=== PATIENT | female | born 1935 | race Caucasian/White ===

== ENCOUNTER 2018-04-18 10:55 | Day surgery (SDC) | payer OTHER ==
[2018-04-18] MEDS ORDERED: LIDOCAINE 2% MPF 5 ML VIAL ONE (11:20)
[2018-04-18] MEDS ORDERED: TETRACAINE HCL 0.5% 2ML OPTH ONE (11:21)
[2018-04-18] MEDS ORDERED: NA CHLORIDE 0.9% 500 ML ONE (11:21)
[2018-04-18] MEDS ORDERED: BUPIVACAINE 0.25% PF 10 ML VIAL ONE (11:21)
[2018-04-18] MEDS: CYCLOPENTOLATE 1% OPTH 2 ML ONE ×3 (11:26→11:45)
[2018-04-18] MEDS: PHENYLEPHRINE 10% OPTH 5ML ONE ×3 (11:26→11:45)
[2018-04-18] MEDS ORDERED: NS 0.9% VIAL 10 ML ONE (11:44)
[2018-04-18] MEDS ORDERED: LIDOCAINE 1% MPF 5 ML VIAL ONE (12:23)
[2018-04-18] MEDS ORDERED: PROPOFOL 200 MG/20 ML VIAL IV ONE (12:23)
[2018-04-18] MEDS: BALANCED SALT IRRIG PLAIN 500 ML BTL IRR ONE ×2 (12:26→12:41)
[2018-04-18] MEDS: EPINEPHRINE/PF 1 MG/ML AMP ONE ×2 (12:27→12:41)
[2018-04-18] MEDS: DUOVISC 1 KIT OPTH ONE ×2 (12:28→12:42)
[2018-04-18] MEDS: MOXIFLOXACIN HCL 10 DROPS/ML **OR USE OPTH ONE ×2 (12:28→12:42)
[2018-04-18] MEDS ORDERED: EPINEPHRINE/PF 1 MG/ML AMP ONE (13:03)
--- NOTE | 2018-04-18 13:08 | P.BOP ---
Preoperative diagnosis: Nuclear sclerotic cataract OS Postoperative diagnosis: Same Primary procedure: Phacoemulsification with IOL OS Estimated blood loss: None Anesthesia: Local (Subtenon's infusion with anesthesia for cataract surgery) Complications: None Implants: SN60WF +22.5 Transferred to: Other (Day surgery) Condition: Good
[2018-04-18 13:54] VITALS: BP 161/93; TEMP 97.3; O2SAT 98
--- NOTE | 2018-04-19 00:09 | OP ---
Date of Procedure: 04/18/2018 Surgeon: Mariana Thompson MD Anesthesiologist: Mir Velazquez CRNA and Dwain Garcia MD. Preoperative Diagnosis: Nuclear sclerotic cataract, left eye. Operation Performed: Phacoemulsification with intraocular lens implant, left eye. Anesthesia: Per cataract surgery. Complications: Description Of Procedure: In day surgery, the patient was prepped with Betadine and draped. A conju nctival incision was made in the inferior nasal quadrant with Na scissors. A sub-Tenon block c onsisting of a 1:1 mixture of 2% Xylocaine and 0.25% bupivacaine was placed through the conjunctival incision with a blunt cannula. A [place] balloon was placed over the eye and the patient was transferr ed to the operating room. In the operating room the patient was prepped and draped in the usual sterile fashion for ophthalmic surgery. A lid speculum was placed in the left eye. Two paracentesis sites were made superiorly and inferiorly in the limbal cornea. Viscoat was placed in the anterior chamber and a crescent blade wa s used to make a corneal groove and tunnel, and a keratome was used to enter the anterior chamber. P rovisc was placed in the anterior chamber and a 360 degree capsulotomy was performed with a cystitome . The lens was hydrodissected with BSS and rotated freely. The lens was removed with a stop and cho p technique. 23.76 phaco CDE was used to remove the lens. Residual cortex was removed with the irri gation and aspiration. Provisc was placed in the capsular bag. A SN60WF +22.5 lens was placed in e capsular bag without complications. Irrigation and aspiration were used to remove residual viscoel astic. The paracentesis sites were hydrated with BSS. The wound and paracentesis sites were inspect ed and found to be watertight. Vigamox 0.07 cc was placed intracamerally at the end of the procedure . The eye was irrigated with balanced salt solution. The eye was patched with a soft cotton patch a nd Jackson metal shield. The patient was returned to day surgery in good condition. Comments: 1:5000 epinephrine was placed in the anterior chamber prior to Viscoat. Discharge Instructions: Ms. Heaton is discharged to home in good condition. She is to follow up [facility] Dr. Leidlein today at 3 and then in the morning. JARAD/PHILOMENA Voice ID: [id number] Report ID: [id number]
== END 2018-04-18 13:50 | disposition home or self-care (01) ==
LOC: OR 10:55
PROVIDERS: ATTEND Ophthalmology Retina Specialist
PROC: 08RK3JZ Replacement of Left Lens with Synthetic Substitute, Percutaneous Approach (ICD-10-PCS; principal; 2018-04-18 11:00)
DX: H25.12 Age-related nuclear cataract, left eye (principal); I10 Essential (primary) hypertension; E78.00 Pure hypercholesterolemia, unspecified; Z79.82 Long term (current) use of aspirin; Z88.0 Allergy status to penicillin; Z85.3 Personal history of malignant neoplasm of breast; Z86.73 Personal history of transient ischemic attack (TIA), and cerebral infarction without residual deficits; Z82.3 Family history of stroke; Z82.49 Family history of ischemic heart disease and other diseases of the circulatory system
CPT/HCPCS: 66984; J0171 ×2; J2704; V2630

== ENCOUNTER 2023-06-21 15:30 | Inpatient (IN) | payer OTHER ==
[2023-06-21] MEDS ORDERED: ONDANSETRON 4 MG/2 ML VIAL ONE (16:21)
[2023-06-21] MEDS ORDERED: MORPHINE 2 MG/ML SYR ONE ×2 (16:21→19:12)
[2023-06-21 16:32] LABS: Absolute Eosinophils 0.1 K/uL (0-0.5); Absolute Lymphocytes (CBC) 1.4 K/uL (0.7-4.9); Absolute Monocytes 1.3 K/uL (0.1-1.3); Absolute Neutrophil 8.1 K/uL (1.8-8.0); Basophils % 0.3 % (0-1.3); Eosinophils % 1.4 % (0-4.4); Hematocrit 39.7 % (36.0-45.0); Hemoglobin 13.3 g/dL (12.0-15.0); Lymphocytes % 12.5 % (15.3-44.8); MCH 30.9 pg (27.0-35.0); MCHC 33.4 g/dL (32.0-36.0); MCV 92.5 fL (80-100); Monocytes % 11.6 % (3.3-12.3); Neutrophils % 74.2 % (41.7-73.7); Platelets 174 thou/uL (152-406); Red Cell Distribution Width 13.6 % (12.1-15.2)
[2023-06-21 17:56] LABS: Specific Gravity 1.015 (1.005-1.030); Urine Bacteria <20 /HPF (<20); Urine Bilirubin NEGATIVE (Negative); Urine Blood Negative (Negative); Urine Clarity Turbid (Clear); Urine Color Light-Yellow (Yellow); Urine Glucose NEGATIVE (Negative); Urine Mucus Slight /HPF (None Seen); Urine Protein NEGATIVE (Negative); Urine RBC <5 /HPF (None Seen); Urine Urobilinogen Normal (Normal); Urine pH 6.5 (5.0-7.0)
[2023-06-21 19:19] LABS: Anion Gap 5.8 mEq/L (5.0-15.0); BUN Blood Urea Nitrogen 18 mg/dL (7-18); Bicarbonate 27 mEq/L (21-32); Glucose Level 104 mg/dL (74-106); Sodium Level 136 mEq/L (136-145)
[2023-06-21 19:20] LABS: ALT/SGPT 41 U/L (13-56); AST/SGOT 29 U/L (15-37); Albumin/Globulin Ratio 0.7 (1.1-1.8); Alkaline Phosphatase 64 U/L (45-117); Bilirubin Direct < 0.1 mg/dL (0-0.2); Bilirubin Indirect, Calculated ND mg/dL (0.2-0.8); Bilirubin Total 0.6 mg/dL (0.2-1.0); Globulin 4.2 g/dL (2.3-3.5); Glomerular Filtration Rate 66 ml/min (=/>90); Lipase 55 U/L (13-75); NT PRO-BNP 306 pg/mL (<450); Potassium 4.8 mEq/L (3.5-5.1); Protein, Total 7.2 g/dL (6.4-8.2); Troponin High Sensitivity 6.3 pg/mL (<58.9)
--- NOTE | 2023-06-21 20:49 | RAD REPORT ---
EXAM DESCRIPTION: CT - Chest For Pe Angio - 06/21/2023 8:30 pm CLINICAL HISTORY: Chest pain COMPARISON: None. TECHNIQUE: Dynamically enhanced axial 3 mm thick images of the chest were obtained during administra tion of 100 mL Isovue 370 IV contrast. Coronal and oblique reconstruction images were generated and r eviewed. Exam utilizes a protocol for optimal evaluation of pulmonary arterial tree. Maximum intensity projections 3D imaging was utilized All CT scans are performed using dose optimization technique as appropriate and may include automated exposure control or mA/KV adjustment according to patient size. FINDINGS: A pulmonary embolus is not seen. A thoracic aortic aneurysm is not noted. A pleural effusion is not seen. A pericardial effusion is not seen. A lung consolidation is not present. IMPRESSION: Negative for a pulmonary embolism.
--- NOTE | 2023-06-21 20:56 | RAD REPORT ---
EXAM DESCRIPTION: CT - Abdomen Pelvis W Contrast - 06/21/2023 8:30 pm CLINICAL HISTORY: Abdominal pain COMPARISON: none. TECHNIQUE: Computed axial tomography of the abdomen pelvis was obtained. 100 cc Isovue-300 was admin istered intravenously. Oral contrast was not requested which limits evaluation of bowel and appendix All CT scans are performed using dose optimization technique as appropriate and may include automated exposure control or mA/KV adjustment according to patient size. FINDINGS: The liver, spleen, pancreas, adrenal and left kidney appear unremarkable 2 millimeter calculus right renal pelvis. No hydronephrosis. There is no evidence of diverticulitis. Appendix not visualized. No stranding adjacent to the cecum No adnexal mass Mild thickening wall of the distal stomach Spondylosis lumbar spine resulting in spinal stenosis IMPRESSION: Mild thickening wall of the distal stomach could be secondary to inflammation or incompl ete distention. A 2 millimeter nonobstructing right renal calculus No acute abnormality displayed
--- NOTE | 2023-06-21 20:57 | RAD REPORT ---
EXAM DESCRIPTION: [place] Single View06/21/2023 5:11 pm CLINICAL HISTORY: Chest pain COMPARISON: May 2023 FINDINGS: The lungs appear clear of acute infiltrate. The heart is borderline enlarged. Pacemaker l asa in place IMPRESSION: No acute abnormalities displayed
--- NOTE | 2023-06-21 21:01 | RAD REPORT ---
EXAM DESCRIPTION: US - Abdomen Exam Limited - 06/21/2023 4:15 pm CLINICAL HISTORY: Abdominal pain. COMPARISON: May 13, 2023 FINDINGS: Echogenic structure is present within the right upper quadrant. There is posterior shadowi ng. Normal appearing gallbladder not seen. The biliary tree is normal caliber. IMPRESSION: Echogenic structure is present the right upper quadrant. An ultrasound of May 13 24 demonstrates a normal appearance to the gallbladder. I suspect that the echogenic structure on the current exam represents air within stomach. Development of of gallstones in a contracted gallbladder in such a short time frame is considered doubtful. CT scan on today's date does not demonstrate a co ntracted gallbladder However, it is recommended that the patient have a follow-up gallbladder ultrasound for further evalu ation. .
--- NOTE | 2023-06-21 21:16 | ER ---
Nurse's Notes [facility] Name: Libra Heaton Age: 87 yrs Sex: Female : 1935 Arrival Date: 06/21/2023 Time: 15:30 Bed 13 Private MD: Diagnosis: Upper abdominal pain, unspecified Presentation: 06/20 15:35 Chief complaint: EMS states: CHEST PAIN AND RIGHT FLANK PAIN . HX OF PACEMAKER AND db AFIB. GIVEN 15 MG TORADOL. Coronavirus screen: Vaccine status: Patient reports receiving the 2nd dose of the covid vaccine. Client denies travel out of the [place] in the last 14 days. At this time, the client does not indicate any symptoms associated with coronavirus-19. Ebola Screen: Patient negative for fever greater than or equal to 101.5 degrees Fahrenheit, and additional compatible Ebola Virus Disease symptoms Patient denies exposure to infectious person. Patient denies travel to an Ebola-affected area in the 21 days before illness onset. No symptoms or risks identified at this time. Initial Sepsis Screen: Does the patient meet any 2 criteria? No. Patient's initial sepsis screen is negative. Does the patient have a suspected source of infection? No. Patient's initial sepsis screen is negative. Risk Assessment: Do you want to hurt yourself or someone else? Patient reports no desire to harm self or others. Onset of symptoms was June 21, 2023. 15:35 Method Of Arrival: EMS: [facility] db 15:35 Acuity: ANNA 2 db Triage Assessment: 15:48 General: Appears in no apparent distress. uncomfortable, Behavior is calm, cooperative. db Pain: Complains of pain in chest and abdomen. Neuro: Level of Consciousness is awake, alert, obeys commands, Oriented to person, place, time, situation. Cardiovascular: Reports chest pain, Denies shortness of breath. Respiratory: Airway is patent Respiratory effort is even, unlabored, Respiratory pattern is regular, symmetrical. GI: Abdomen is flat, non-distended, Reports upper abdominal pain. Historical: - Allergies: 15:48 PENICILLINS; db - PMHx: 15:48 Atrial fibrillation; db - PSHx: 15:48 PACEMAKER; db - Immunization history:: Adult Immunizations unknown. - Social history:: Smoking status: Patient denies any tobacco usage or history of. - Family history:: not pertinent. - Hospitalizations: : No recent hospitalization is reported. Screenin:45 [facility] ED Fall Risk Assessment (Adult) History of falling in the last 3 months, me1 including since admission No falls in past 3 months (0 pts) Confusion or Disorientation No (0 pts) Intoxicated or Sedated No (0 pts) Impaired Gait No (0 pts) Mobility Assist Device Used No (0 pt) Altered Elimination No (0 pt) Score/Fall Risk Level 0 - 2 = Low Risk Maintained a safe environment, Provided non-skid footwear, Hourly rounding (assess needs \T\ fall precautionary measures) done. Abuse screen: Denies threats or abuse. Nutritional screening: No deficits noted. Tuberculosis screening: No symptoms or risk factors identified. Assessment: 15:45 General: Appears uncomfortable, well groomed, well developed, well nourished, Behavior me1 is calm, cooperative, appropriate for age, Reports c/o right chest pain and right flank pain that radiates to right lower back. 7/10. Pain: Complains of pain in abdomen and chest Pain radiates to back Pain currently is 7 out of 10 on a pain scale. Quality of pain is described as sharp, shooting, Pain began suddenly, Is continuous. Neuro: Level of Consciousness is awake, alert, obeys commands, Oriented to person, place, time, situation, Appropriate for age. Cardiovascular: Capillary refill < 3 seconds Patient's skin is warm and dry. Respiratory: Airway is patent Respiratory effort is even, unlabored, Respiratory pattern is regular, symmetrical. GI: Patient currently denies diarrhea, nausea, vomiting. : Reports pain in right flank(s), in lower back. 17:45 Reassessment: CALLED PHLEBOTOMY FOR RECOLLECT. db 23:15 General: Daughter Chloe: [phone]. lg3 Vital Signs: 15:35 BP 208 / 82; Pulse 77; Resp 18; Pulse Ox 100% ; Weight 68.04 kg; Height 5 ft. 4 in. ; db Pain 6/10; 16:08 BP 184 / 77; Pulse 79; Resp 18; Pulse Ox 100% on R/A; me1 17:00 BP 173 / 65; Pulse 75; Resp 16; Pulse Ox 98% on R/A; me1 18:00 BP 183 / 100; Pulse 82; Resp 16; Pulse Ox 99% ; me1 19:16 BP 185 / 56; Pulse 75; Resp 15; Pulse Ox 98% on R/A; me1 20:00 BP 190 / 69; Pulse 78; Resp 18; Pulse Ox 99% on R/A; me1 21:00 BP 181 / 65; Pulse 83; Resp 24; Pulse Ox 96% on R/A; me1 22:00 BP 150 / 54; Pulse 82; Resp 24; Pulse Ox 94% on R/A; me1 15:35 Body Mass Index 25.75 (68.04 kg, 162.56 cm) db 15:35 Pain Scale: Adult db ED Course: 15:34 Patient arrived in ED. me1 15:36 Terrell Brady MD is Attending Physician. rn 15:41 EKG done, by ED staff, reviewed by Terrell Brady MD. db 15:45 No Monet, RN is Primary Nurse. db 15:45 No provider procedures requiring assistance completed. me1 15:45 Patient has correct armband on for positive identification. Provided Education on: POC. me1 Verbalized understanding. . 15:48 Triage completed. db 15:50 Maintain EMS IV. Dressing intact. Good blood return noted. Site clean \T\ dry. Gauge \T\ db site: 20 G LFA. 15:50 Arm band placed on Patient placed in an exam room. db 16:17 US Abdomen Limited In Process Unspecified. EDMS 16:20 Initial lab(s) drawn, by me, sent to lab. db 17:12 XRAY Chest (1 view) In Process Unspecified. EDMS 17:56 Urinalysis w/ reflexes Sent. me1 18:06 Attending Physician role handed off by Terrell Brady MD ec2 18:06 Jay Smith MD is Attending Physician. ec2 20:26 Anh Cooper PA-C is PHCP. sb4 20:32 CT Chest For PE Angio In Process Unspecified. EDMS 20:32 CT Abd/Pelvis - IV Contrast Only In Process Unspecified. EDMS 21:14 Salinas Trujillo MD is Hospitalizing Provider. sb4 23:43 Primary Nurse role handed off by oN oMnet, RN as6 23:44 Loraine Saini, LENNY is Primary Nurse. me1 03/ 00:43 Patient admitted, IV remains in place. lg3 08:36 Primary Nurse role handed off by Loraine Saini, LENNY jl7 14:51 Loraine Saini, RN is Primary Nurse. me1 Administered Medications: 06/20 16:25 Drug: morphine IVP or IV 2 mg IVP once over 4 mins Route: IVP; Infused Over: 4 mins; db Site: left forearm; 17:02 Follow up: Response: No adverse reaction; Pain is decreased me1 16:25 Drug: Ondansetron IVP 4 mg IVP once; over 2 minutes Route: IVP; Site: left forearm; db 17:02 Follow up: Response: No adverse reaction; Nausea is decreased me1 19:15 Drug: morphine IVP or IV 2 mg IVP once over 4 mins Route: IVP; Infused Over: 4 mins; me1 Site: left forearm; 19:35 Follow up: Response: No adverse reaction; Pain is decreased me1 22:01 Drug: HYDROmorphone IVP 0.5 mg IVP once Route: IVP; Site: left antecubital; me1 22:14 Follow up: Response: No adverse reaction; Pain is decreased me1 22:31 Drug: Flomax PO 0.4 mg PO once Route: PO; me1 22:51 Follow up: Response: No adverse reaction me1 Medication: 15:45 VIS not applicable for this client. me1 Outcome: 21:15 Decision to Hospitalize by Provider. sb4 03 00:42 Admitted to ER Hold. Please see [facility] for further documentation. lg3 Condition: stable Instructed on the need for admit, Demonstrated understanding of instructions, 14:51 Admitted to Tele accompanied by [facility], via wheelchair, room 424, with chart, Report me1 called to faxed report at 14:42. Confirmed receipt with anna Bowenmaid housekeeper. 15:41 Patient left the ED. mb9 Signatures: Dispatcher [employer] EDTerrell Odonnell MD MD rn Leal, Jahala, RN RN jl7 Cecilia Hussein RN RN lg3 Fco Padilla RN RN as6 No Monet RN RN Anh Andrea, PA-C PA-C sb4 Kaylin Cota RN LENNY mb9 Loraine Saini, RN RN me1 Jay Smith MD MD ec2 Corrections: (The following items were deleted from the chart) 06/20 17:05 15:35 Chief complaint: EMS states: CHEST PAIN AND RIGHT FLANK PAIN . HX OF PACEMAKER me1 AND AFIB. GIVEN 15 MG TORADOL db
--- NOTE | 2023-06-21 21:16 | EDPHYS ---
Physician Documentation [facility] Name: Libra Heaton Age: 87 yrs Sex: Female : 1935 Arrival Date: 06/21/2023 Time: 15:30 Bed 13 Private MD: ED Physician Jay Smith HPI: 06/20 15:56 This 87 yrs old Female presents to ER via EMS with complaints of Abdominal Pain. rn 15:56 The patient presents with abdominal pain in the right upper quadrant. Onset: The rn symptoms/episode began/occurred this morning. The symptoms radiate to right back. Associated signs and symptoms: Pertinent positives: chest pain, Pertinent negatives: fever, hematuria, shortness of breath, vomiting. The symptoms are described as sharp, stabbing. Modifying factors: The symptoms are alleviated by nothing, the symptoms are aggravated by movement, touching the area. Severity of pain: At its worst the pain was moderate in the emergency department the pain is unchanged. The patient has not experienced similar symptoms in the past. Patient states right upper quadrant/chest pain that began this morning. Had potato with me last night. Has never had this pain. No trauma or fall. No fever. Reports mild cough but no shortness of breath. Pain worse with movement and palpation.. Historical: - Allergies: 15:48 PENICILLINS; db - PMHx: 15:48 Atrial fibrillation; db - PSHx: 15:48 PACEMAKER; db - Immunization history:: Adult Immunizations unknown. - Social history:: Smoking status: Patient denies any tobacco usage or history of. - Family history:: not pertinent. - Hospitalizations: : No recent hospitalization is reported. ROS: 15:56 Constitutional: Negative for fever, chills, and weight loss, Cardiovascular: Positive rn for right-sided chest pain Respiratory: Positive for cough, negative for shortness of breath Abdomen/GI: Positive for right upper quadrant abdominal pain, negative for nausea/vomiting Back: Positive for right-sided radiated back pain MS/Extremity: Negative for injury and deformity, Skin: Negative for injury, rash, and discoloration, Neuro: Negative for headache, weakness, numbness, tingling, and seizure, Exam: 15:56 Constitutional: This is a well developed, well nourished patient who is awake, alert, rn and in no acute distress. Head/Face: Normocephalic, atraumatic. Cardiovascular: Regular rate, irregular rhythm. No pulse deficits no pulse deficits. Respiratory: Speaking full sentences, unlabored. No increased work of breathing, no retractions or nasal flaring. Splinting on right side with deep inspiration Abdomen/GI: Soft, right upper quadrant tenderness with guarding, no distention MS/ Extremity: Pulses equal, no cyanosis. Neurovascular intact. Full, normal range of motion. Equal circumference. Neuro: Awake and alert, GCS 15 16:37 ECG was reviewed by the Attending Physician. rn Vital Signs: 15:35 BP 208 / 82; Pulse 77; Resp 18; Pulse Ox 100% ; Weight 68.04 kg; Height 5 ft. 4 in. ; db Pain 6/10; 16:08 BP 184 / 77; Pulse 79; Resp 18; Pulse Ox 100% on R/A; me1 17:00 BP 173 / 65; Pulse 75; Resp 16; Pulse Ox 98% on R/A; me1 18:00 BP 183 / 100; Pulse 82; Resp 16; Pulse Ox 99% ; me1 19:16 BP 185 / 56; Pulse 75; Resp 15; Pulse Ox 98% on R/A; me1 20:00 BP 190 / 69; Pulse 78; Resp 18; Pulse Ox 99% on R/A; me1 21:00 BP 181 / 65; Pulse 83; Resp 24; Pulse Ox 96% on R/A; me1 22:00 BP 150 / 54; Pulse 82; Resp 24; Pulse Ox 94% on R/A; me1 15:35 Body Mass Index 25.75 (68.04 kg, 162.56 cm) db 15:35 Pain Scale: Adult db MDM: 15:36 Patient medically screened. rn 18:07 Data reviewed: vital signs. ED course: Patient signed out to me by previous physician, ec2 in brief patient with Dr. Choi abdominal pain. Plan is to follow-up CT scan of the chest as well as abdomen and pelvis. Likely admit for symptom control.. 20:33 ED course: patient signed out to me by Dr. Smith. patient presented with RUQ abdominal sb4 pain. imaging is still pending. patient will likely be admitted to Dr. Trujillo. 06/20 15:43 Order name: Basic Metabolic Panel; Complete Time: 19:21 rn 06/20 15:43 Order name: CBC with Diff; Complete Time: 16:36 rn 06/20 15:43 Order name: LFT's; Complete Time: 19:21 rn 06/20 15:43 Order name: NT PRO-BNP; Complete Time: 19:21 rn 06/20 15:43 Order name: Troponin HS; Complete Time: 19:21 rn 06/20 15:44 Order name: Lipase; Complete Time: 19:21 rn 06/20 15:44 Order name: Urinalysis w/ reflexes; Complete Time: 17:58 rn 06/21 04:41 Order name: CBC with Automated Diff; Complete Time: 08:36 EDMS 06/21 04:48 Order name: Basic Metabolic Panel; Complete Time: 08:36 EDMS 06/21 04:48 Order name: Phosphorus; Complete Time: 08:36 EDMS 06/21 04:48 Order name: Magnesium; Complete Time: 08:36 EDMS 06/20 15:43 Order name: XRAY Chest (1 view); Complete Time: 20:58 rn 06/20 15:43 Order name: US Abdomen Limited; Complete Time: 21:01 rn 06/20 15:43 Order name: CT Chest For PE Angio; Complete Time: 20:50 rn 06/20 15:43 Order name: CT Abd/Pelvis - IV Contrast Only; Complete Time: 20:57 rn 06/21 13:55 Order name: US EDMA 06/21 15:03 Order name: MS EDMA 06/20 15:43 Order name: EKG; Complete Time: 15:44 rn 06/20 15:43 Order name: Cardiac monitoring; Complete Time: 16:28 rn 06/20 15:43 Order name: EKG - Nurse/Tech; Complete Time: 16: rn 06/20 15:43 Order name: IV Saline Lock; Complete Time: 16: rn 06/20 15:43 Order name: Labs collected and sent; Complete Time: 16:28 rn 06/20 15:43 Order name: O2 Per Protocol; Complete Time: 16: rn 06/20 15:43 Order name: O2 Sat Monitoring; Complete Time: 16:07 rn EC:37 Rate is 76 beats/min. Rhythm is regular. QRS [place] is Normal. MO interval is normal. QRS rn interval is normal. QT interval is normal. No Q waves. T waves are Normal. No ST changes noted. Clinical impression: Normal ECG. Interpreted by me. Reviewed by me. Administered Medications: 16:25 Drug: morphine IVP or IV 2 mg IVP once over 4 mins Route: IVP; Infused Over: 4 mins; db Site: left forearm; 17:02 Follow up: Response: No adverse reaction; Pain is decreased me1 16:25 Drug: Ondansetron IVP 4 mg IVP once; over 2 minutes Route: IVP; Site: left forearm; db 17:02 Follow up: Response: No adverse reaction; Nausea is decreased me1 19:15 Drug: morphine IVP or IV 2 mg IVP once over 4 mins Route: IVP; Infused Over: 4 mins; me1 Site: left forearm; 19:35 Follow up: Response: No adverse reaction; Pain is decreased me1 22:01 Drug: HYDROmorphone IVP 0.5 mg IVP once Route: IVP; Site: left antecubital; me1 22:14 Follow up: Response: No adverse reaction; Pain is decreased me1 22:31 Drug: Flomax PO 0.4 mg PO once Route: PO; me1 22:51 Follow up: Response: No adverse reaction me1 Disposition: 06/22 08:05 I agree with the assessment and plan of care. ec2 Disposition Summary: 06/21/23 21:15 Hospitalization Ordered Notes: Hospitalization Status: Observation sb4 Provider: Sailnas Trujillo sb4 Condition: Fair sb4 Problem: new sb4 Symptoms: are unchanged sb4 Bed/Room Type: Standard sb4 Location: Telemetry/MedSurg (observation)(06/22/23 14:35) 5 Room Assignment: 424(06/22/23 14:35) [facility] [place] Diagnosis - Upper abdominal pain, unspecified sb4 Forms: - Medication Reconciliation Form sb4 - SBAR form sb4 - Leadership Thank You Letter sb4 Signatures: Dispatcher [employer] Nancy Burk RN RN kl Nieto, Roman, MD MD rn Benton, Danielle, RN RN db Brown, Sophia, PAKamleshC PADavey sb4 Loraine Saini RN RN ms1 Eliana Kumari 5 Jay Smith MD MD ec2 Corrections: (The following items were deleted from the chart) 06/20 23:22 21:15 Telemetry/MedSurg (observation) sb4 kl : 21:15 sb4 kl 06/21 14:35 06/20 23:22 [facility] 06/21 14:35 06/20 23:22 [facility]5
[2023-06-21] MEDS ORDERED: HYDROMORPHONE HCL 0.5 MG/0.5 ML INJ ONE (21:55)
[2023-06-21] MEDS ORDERED: TAMSULOSIN 0.4 MG SR CAP ONE (22:15)
[2023-06-21] MEDS: NA CHLORIDE 0.9% 1,000 ML IV SCH (23:00)
[2023-06-22] MEDS ORDERED: NA CHLORIDE 0.9% 1,000 ML ONE
[2023-06-22 00:02] VITALS: BMI 25.7
[2023-06-22] MEDS ORDERED: MORPHINE 4 MG/ML SYR ONE ×2 (04:06→08:56)
[2023-06-22] MEDS ORDERED: ONDANSETRON 4 MG/2 ML VIAL ONE ×2 (04:06→08:56)
[2023-06-22] MEDS: MORPHINE 4 MG/ML SYR IV PRN (04:10)
[2023-06-22] MEDS: ONDANSETRON 4 MG/2 ML VIAL IV PRN (04:11)
[2023-06-22 04:25] LABS: Absolute Basophils 0.1 K/uL (0-0.5); Absolute Eosinophils 0.1 K/uL (0-0.5); Absolute Lymphocytes (CBC) 1.8 K/uL (0.7-4.9); Absolute Monocytes 1.4 K/uL (0.1-1.3); Absolute Neutrophil 5.6 K/uL (1.8-8.0); Basophils % 0.6 % (0-1.3); Hematocrit 37.1 % (36.0-45.0); Hemoglobin 12.6 g/dL (12.0-15.0); Lymphocytes % 19.9 % (15.3-44.8); MCH 31.5 pg (27.0-35.0); MCHC 33.8 g/dL (32.0-36.0); MCV 93.1 fL (80-100); MPV 10.1 fL (7.6-11.3); Monocytes % 15.9 % (3.3-12.3); Neutrophils % 62.6 % (41.7-73.7); Platelets 172 thou/uL (152-406); RBC Red Blood Cell Count 3.99 M/uL (3.86-4.86); Red Cell Distribution Width 13.4 % (12.1-15.2)
[2023-06-22 04:47] LABS: Anion Gap 8.1 mEq/L (5.0-15.0); Magnesium 2.3 mg/dL (1.6-2.4); Phosphorus 3.3 mg/dL (2.5-4.9); Potassium 4.1 mEq/L (3.5-5.1)
[2023-06-22] MEDS: FAMOTIDINE 20 MG TAB PO SCH (13:00)
--- NOTE | 2023-06-22 13:23 | P.SSS ---
Patient History Date of Service: 06/22/23 Reason for admission: ABDOMEN PAIN RUQ History of Present Illness: SHEHAS RUQ PAIN WITH RADIATION TO BACK FOR TWO DAYS. NO OTHER SS. WORKUP DONE IN ER. Allergies Penicillins Allergy (Intermediate, Verified 04/14/18 11:55) Itching/Hives/Rash Home medications list reviewed: Yes Home Medications: Aspirin Enteric Coated [ASPIRIN 81 MG EC*] 81 mg PO DAILY 05/01/13 Letrozole [Femara*] 2.5 mg PO DAILY 08/09/14 Losartan Potassium [Cozaar] 25 mg PO BID 6AM 6PM 02/21/15 Famotidine 20 mg PO BID 06/22/23 Metoprolol Succinate [Toprol Xl] 25 mg PO BID 06/22/23 Raloxifene HCl 60 mg PO DAILY 06/22/23 cloNIDine HCL [Clonidine HCl] 0.1 mg PO PRN PRN 06/22/23 - Past Medical/Surgical History Has patient received pneumonia vaccine in the past: Yes Diabetic: No -: Breast CA/currently taking radiation -: lymphedema -: masectomy - Social History Smoking Status: Unknown if ever smoked Alcohol use: No Place of Residence: Home Review of Systems 10-point ROS is otherwise unremarkable Physical Examination - Vital Signs Temperature: 97.5 F Blood Pressure: 142/79 Pulse: 79 Respirations: 17 Pulse Ox (%): 99 - Physical Exam General: Alert, In no apparent distress HEENT: Atraumatic, PERRLA, Mucous membr. moist/pink, EOMI, Sclerae nonicteric Neck: Supple, 2+ carotid pulse no bruit, No LAD, Without JVD or thyroid abnormality Respiratory: Clear to auscultation bilaterally, Normal air movement Cardiovascular: Regular rate/rhythm, Normal S1 S2 Gastrointestinal: Normal bowel sounds, Non-distended, No tenderness, Tenderness (RUQ) Musculoskeletal: No tenderness Integumentary: No rashes Neurological: Normal gait, Normal speech, Normal strength at 5/5 x4 extr, Normal tone, Normal affect Lymphatics: No axilla or inguinal lymphadenopathy - Studies Laboratory Data (last 24 hrs) 06/21/23 06/21/23 18:11 16:18 WBC 10.90 Hgb 13.3 Hct 39.7 Plt Count 174 Sodium 136 Potassium 4.8 BUN 18 Creatinine 0.86 Glucose 104 Total Bilirubin 0.6 AST 29 ALT 41 Alkaline Phosphatase 64 Lipase 55 - Diagnosis (Problem(s)) (1) Abdominal pain, RUQ Current Visit: Yes Status: Acute Plan: MUNGUIA NOT CLEAR DR. LEE WANTED ANOTHER SONOGRAM HE WAS NOT CLEAR IF GB WAS ENLARGED OR STOMACH ON TOP OF IT. I AM WAITING FOR REPORT. CLINICALLY SHE HAS GALL BLADDER COLIC. RENAL STONE IS NOT AN ISSUE HERE. - Disposition Disposition: ROUTINE DISCHARGE
--- NOTE | 2023-06-22 13:54 | RAD REPORT ---
EXAM DESCRIPTION: US - Abdomen Exam Limited - 06/22/2023 1:31 pm CLINICAL HISTORY: gall bladder sonogram, stat Abdominal pain COMPARISON: Abdomen Exam Limited dated 06/21/2023 FINDINGS: The gallbladder demonstrates no gallstones. No pericholecystic fluid or gallbladder wall t hickening. The common bile duct is normal measuring 4 mm. The liver demonstrates no findings of intrahepatic biliary dilatation. IMPRESSION: Unremarkable examination.
--- NOTE | 2023-06-22 15:03 | RAD REPORT ---
EXAM DESCRIPTION: NM - Hepatobiliary System W/ Ph - 06/22/2023 2:53 pm CLINICAL HISTORY: ruq pain Abdominal pain COMPARISON: Breast Core BX w/US Guidance dated 10/29/2015 TECHNIQUE: The patient was administered 6.1 mCi Tc99m Choletec. Imaging of the right upper quadrant was performed initially for up to 60 minutes. Gallbladder ejection fraction determination was then performed utilizing synthetic 1.4 mgm CCK over a slow 30 minute infusion. FINDINGS: Normal hepatic uptake and excretion with appropriate clearance of background blood pool ac tivity. Normal visualization of biliary and small bowel activity. Gallbladder visualizes within normal time limits. The calculated ejection fraction is 38% (normal gre ater than 35%). 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 No delay in visualization of the gallb ladder, biliary tree, or duodenum. Ejection fraction is 38% (normal greater than 35%). Subjective patient pain assessment as detailed above.
[2023-06-22] MEDS: ACETAMINOPHEN 325 MG TABLET PO PRN (16:03)
[2023-06-22] MEDS ORDERED: TRAMADOL HCL 50 MG TAB PO PRN (17:06)
[2023-06-22] MEDS: LOSARTAN POTASSIUM 50 MG TABLET PO SCH (21:28)
[2023-06-22] MEDS: METOPROLOL XL 25 MG TAB PO SCH (21:29)
[2023-06-23 04:15] LABS: Anion Gap 8.2 mEq/L (5.0-15.0); Magnesium 2.1 mg/dL (1.6-2.4); Phosphorus 2.4 mg/dL (2.5-4.9); Potassium 4.2 mEq/L (3.5-5.1)
[2023-06-23] MEDS: cloNIDine HCL 0.1 MG TAB PO PRN (04:17)
[2023-06-23] MEDS: POTASS/SODIUM PHOSPHATE 1 PKT POWD.PACK PO SCH (08:00)
[2023-06-23] MEDS: TRAVOPROST OPTH SCH (09:00)
[2023-06-23] MEDS: CYCLOSPORINE OPTH SCH (09:00)
[2023-06-23] MEDS: LETROZOLE 2.5 MG TAB PO SCH (09:00)
[2023-06-23] MEDS: ENOXAPARIN 40 MG/0.4 ML SQ SCH (09:00)
[2023-06-23] MEDS: TIMOLOL OPTH SCH (09:00)
[2023-06-23] MEDS: BRIMONIDINE TARTRATE OPTH SCH (09:00)
[2023-06-23] MEDS: RALOXIFENE HCL 60 MG TAB PO SCH (09:00)
[2023-06-23] MEDS: LEVOTHYROXINE SOD 0.025 MG TAB PO SCH (09:29)
[2023-06-23] MEDS: LOSARTAN POTASSIUM 50 MG TABLET PO SCH (09:29)
[2023-06-23 09:59] VITALS: BP 141/69
[2023-06-23 10:00] VITALS: TEMP 98.5
[2023-06-23 10:28] VITALS: O2SAT 93
--- NOTE | 2023-06-25 17:40 | EKG ---
Test Date: 2023-06-21 Test Time: 14:41:34 Senior Network Engineer: BERT MEASUREMENT RESULTS: Intervals: Rate: 76 MS: 184 QRSD: 94 QT: 392 QTc: 441 [place]: P: 64 MS: 184 QRS: 23 T: 24 INTERPRETIVE STATEMENTS: Normal sinus rhythm Normal ECG Compared to ECG 12/02/2009 13:55:46 No significant changes Electronically Signed On 06-25-23 17:27:34 CDT by Ricardo Tenorio
== END 2023-06-23 10:25 | disposition home or self-care (01) | DRG 392 ==
LOC: ER 15:30 → ERHOLD 22:21 → 4TH 06-22 14:48 → OBSVTOIN 06-23 09:08
PROVIDERS: ADMIT Internal Medicine; ATTEND Internal Medicine
DX: R10.11 Right upper quadrant pain (principal); I48.91 Unspecified atrial fibrillation; C50.919 Malignant neoplasm of unspecified site of unspecified female breast; Z88.0 Allergy status to penicillin; Z95.0 Presence of cardiac pacemaker; Z79.82 Long term (current) use of aspirin; Z90.10 Acquired absence of unspecified breast and nipple; Z79.899 Other long term (current) drug therapy
CPT/HCPCS: 36415; 71045; 71275; 74177; 76705; 78227; 80048; 80076; 81001; 83690; 83735; 83880; 84100; 84484; 85025; 93005; 99285; A9537; G0378; J1170; J1650; J2270; J2405; J2805; J7030; Q9967